=== PATIENT | male | born 1945 | race Caucasian/White ===

== ENCOUNTER 2017-01-02 21:29 | Outpatient (CLI) | payer MEDICARE | END 2017-01-02 21:30 | disposition critical access hospital (66) | LOC: EMS 21:29 | PROVIDERS: ATTEND Surgery | DX: M54.5 Low back pain (principal); Z91.81 History of falling | CPT/HCPCS: A0425; A0427 ==

== ENCOUNTER 2017-01-02 21:50 | Emergency (ER) | payer MEDICARE ==
[2017-01-02] MEDS ORDERED: SODIUM CHLORIDE 0.9% 500 ML IV ONE (22:46)
[2017-01-02] MEDS ORDERED: MORPHINE 10 MG/ML VIAL IVP STA (22:51)
--- NOTE | 2017-01-02 22:51 | ED Physician Documentation ---
PD HPI BACK PAIN - Stated complaint Stated Complaint: LW BACK PN - Chief complaint Chief Complaint: Neuro - History obtained from History obtained from: Patient - History of Present Illness Timing - onset: How many days ago (6-7 days ago after a fall, with worsening of chronic low back pain. Still with some worse pain, but improved from the time of the fall. Has general weakness and confusion starting today.) Timing - details: Abrupt onset (has had chronic back pain but acute worsening 6 days ago when fell backward, lost balance.), Still present (has had continued higher degree of back pain all week. Has had onset of confusion and agitation the past day. Has not missed any meds. Only new med was Prednisone the past 5 days.) Location: Lower Quality: Pain Associated symptoms: Unable to urinate (smaller dribbling at times.), Other (he has been confused and anxious the past 1-2 days.). No: Fever, Weakness, Numbness Worsened by: Movement Contributing factors: Trauma (fell backward, lost balance 6 days ago). No: Anticoagulated Recently seen: Emergency Dept (in [place], 6 days ago for low back pain and Rx with Prednisone that he has been on since Tuesday.) Review of Systems Constitutional: denies: Fever Nose: denies: Rhinorrhea / runny nose, Congestion Throat: denies: Sore throat Respiratory: denies: Cough GI: denies: Abdominal Pain, Nausea, Vomiting, Diarrhea, Bloody / black stool : reports: Frequency, Hesitancy. denies: Dysuria Skin: denies: Rash, Lesions Musculoskeletal: reports: Back pain, Other (he has fallen a couple more times in the past few days, with just slumping to ground, not hard landings, per patient.) Neurologic: reports: Generalized weakness, Confused. denies: Focal weakness, Numbness, Headache, Head injury (he does not think he hit his head with falls.) Psychiatric: denies: Depressed Endocrine: denies: Weight loss Immunocompromised: denies: Immunocompromised PD PAST MEDICAL HISTORY - Past Medical History Cardiovascular: Hypertension, High cholesterol, Coronary artery disease Neuro: None GI: GERD : Benign prostate hypertrophy Musculoskeletal: Gout, Chronic back pain - Past Surgical History Past Surgical History: Yes Ortho: Knee replacement, Spine surgery Cardiovascular: Angioplasty - Present Medications Home Medications: Ambulatory Orders Medication Instructions Recorded Confirmed Allopurinol 300 mg PO DAILY 11/23/13 01/02/17 Aspirin [Aspir 81] 81 mg PO DAILY 11/23/13 01/02/17 Diclofenac Potassium 75 mg PO BID 11/23/13 01/02/17 Doxycycline Hyclate 100 mg PO DAILY 11/23/13 01/02/17 Fluoxetine HCl 60 mg PO DAILY 11/23/13 01/02/17 Furosemide [Lasix] 20 mg PO DAILY 11/23/13 01/02/17 Lisinopril 2.5 mg PO DAILY 11/23/13 01/02/17 Loratadine [Claritin] 10 mg PO DAILY 11/23/13 01/02/17 Metoprolol Tartrate 12.5 mg PO BID 11/23/13 01/02/17 Morphine ER 30 mg PO Q8H 01/13/16 01/02/17 Atorvastatin Calcium [Lipitor] 80 mg PO DAILY 01/02/17 01/02/17 Docusate Sodium [Dss] 250 mg PO DAILY 01/02/17 01/02/17 Nitroglycerin [Nitrostat] 0.4 mg PO PRN PRN MDD 3 01/02/17 01/02/17 Polyethylene Glycol 3350 [Miralax] 17 g PO DAILY 01/02/17 01/02/17 oxyCODONE [Roxicodone] 5 mg PO Q6HR 01/02/17 01/02/17 - Allergies Allergies/Adverse Reactions: Allergies Allergy/AdvReac Type Severity Reaction Status Date / Time No Known Drug Allergies Allergy Verified 01/02/17 22:03 - Living Situation Living Situation: reports: With spouse/s.o. Living Arrangement: reports: At home - Social History Does the pt smoke?: No Smoking Status: Former smoker Does the pt drink ETOH?: Yes Does the pt have substance abuse?: No - Family History Family history: reports: Non contributory - POLST Patient has POLST: No PD ED PE NORMAL - Vitals Vital signs reviewed: Yes - General General: Alert and oriented X 3 (he is oriented but is somewhat anxious and confused, with disjointed or nonsensical answers at times. Does not seem to have any hallucinations. ), No acute distress, Well developed/nourished - HEENT HEENT: Atraumatic, PERRL, EOMI (no nystagmus), Ears normal, Pharynx benign. No : Moist mucous membranes - Neck Neck: Supple, no meningeal sign, No bony TTP, No adenopathy - Cardiac Cardiac: RRR, No murmur - Respiratory Respiratory: Clear bilaterally - Abdomen Abdomen: Soft, Non tender - Male Male : Deferred - Rectal Rectal: Deferred - Back Back: No CVA TTP, Other (upper lumbar area tender to percussion. No rash nor sores. ) - Derm Derm: Normal color, Warm and dry - Extremities Extremities: No tenderness to palpate, Normal ROM s pain, No edema - Neuro Neuro: No motor deficit, No sensory deficit, Normal speech, Other (2+ DTRs at knees. There is normal sensation in perineal and scrotal area. ) - Psych Psych: No: Normal affect (anxious, somewhat confused. Not shaking. ) Results - Vitals Vitals: Vital Signs - 24 hr 01/02/17 01/02/17 01/03/17 22:04 22:17 01:03 Temperature 98.4 C H Heart Rate 78 75 80 Respiratory 19 17 Rate Blood Pressure 136/100 H 152/80 H O2 Saturation 95 94 01/03/17 01/03/17 03:21 05:52 Temperature 36.8 C Heart Rate 83 87 Respiratory 18 20 Rate Blood Pressure 173/91 H 155/90 H O2 Saturation 95 96 Oxygen O2 Source Room air - Labs Labs: Laboratory Tests 01/02/17 01/02/17 01/02/17 23:00 23:00 23:00 WBC 14.5 H RBC 4.35 L Hgb 13.4 L Hct 39.7 L MCV 91.2 MCH 30.9 MCHC 33.8 RDW 14.5 Plt Count 293 MPV 8.4 Neut # 11.6 H Lymph # 1.6 Harding # 1.2 H Eos # 0.0 Baso # 0.1 Absolute Nucleated RBC 0.00 Nucleated RBCs 0.0 Sodium 137 Potassium 3.6 Chloride 100 L Carbon Dioxide 27 Anion Gap 10.0 BUN 28 H Creatinine 0.8 Estimated GFR (MDRD) 96 Glucose 128 H Lactic Acid 1.1 Calcium 8.8 Magnesium 1.8 Total Bilirubin 1.4 H AST 43 H ALT 62 H Alkaline Phosphatase 106 Troponin I Total Protein 6.4 L Albumin 3.5 Globulin 2.9 Albumin/Globulin Ratio 1.2 Lipase 11 L Urine Color Urine Clarity Urine pH Ur Specific Arthur Urine Protein Urine Glucose (UA) Urine Ketones Urine Occult Blood Urine Nitrite Urine Bilirubin Urine Urobilinogen Ur Leukocyte Esterase Ur Microscopic Review Urine Culture Comments 01/02/17 01/03/17 23:00 02:00 WBC RBC Hgb Hct MCV MCH MCHC RDW Plt Count MPV Neut # Lymph # Harding # Eos # Baso # Absolute Nucleated RBC Nucleated RBCs Sodium Potassium Chloride Carbon Dioxide Anion Gap BUN Creatinine Estimated GFR (MDRD) Glucose Lactic Acid Calcium Magnesium Total Bilirubin AST ALT Alkaline Phosphatase Troponin I 0.04 Total Protein Albumin Globulin Albumin/Globulin Ratio Lipase Urine Color DARK YELLOW Urine Clarity CLEAR Urine pH 6.0 Ur Specific Arthur 1.020 Urine Protein NEGATIVE Urine Glucose (UA) NEGATIVE Urine Ketones NEGATIVE Urine Occult Blood NEGATIVE Urine Nitrite NEGATIVE Urine Bilirubin NEGATIVE Urine Urobilinogen 0.2 (NORMAL) Ur Leukocyte Esterase NEGATIVE Ur Microscopic Review NOT INDICATED Urine Culture Comments NOT INDICATED - Rads (name of study) head CT Radiology: Prelim report reviewed (no acute findings) chest xray Radiology: Prelim report reviewed, EMP read contemporaneously (no infiltrates nor acute process) abd/pelvic CT Radiology: Prelim report reviewed (L1 transverse fracture, 2 column, unstable fracture, with hematoma surrounding. No intraabdominal process. ) PD MEDICAL DECISION MAKING - ED course Complexity details: considered differential (Back pain since fall, had plain xrays in Urgent Care or ER 6 days ago. Rx with steroids. His agitation/ confusion could be steroid psychosis. Checked for signs of CHI, infection, metabolic, other medications. He has been taking meds regularly so would not seem withdrawal. ), d/w patient, d/w family (), d/w integration consultant ([place] transfer controller and then Neurosurgery at [facility].) Departure - Departure Disposition: Transfer Acute Care Hosp Clinical Impression: Acute confusion, Steroid-induced psychosis Fracture of lumbar spine Qualifiers: Encounter type: initial encounter Lumbar vertebra fracture level: L1 Fracture type: closed Fracture morphology: other fracture Qualified Code(s): S32.018A - Other fracture of first lumbar vertebra, initial encounter for closed fracture Accidental fall Qualifiers: Encounter type: initial encounter Qualified Code(s): W19.XXXA - Unspecified fall, initial encounter Condition: Stable Record reviewed to determine appropriate education?: Yes
[2017-01-02] MEDS ORDERED: MORPHINE 10 MG/ML VIAL ONE (22:59)
[2017-01-02 23:14] LABS: BASOPHILS # (AUTO) 0.1 10^3/uL (0.0-0.1); BASOPHILS % (AUTO) 0.5 %; HCT - HEMATOCRIT 39.7 % (42.0-52.0); HGB - HEMOGLOBIN 13.4 g/dL (14.0-18.0); LYMPHOCYTES # (AUTO) 1.6 10^3/uL (1.5-3.5); LYMPHOCYTES % (AUTO) 10.9 %; MEAN CORPUSCULAR HEMOGLOBIN 30.9 pg (27.0-31.0); MEAN CORPUSCULAR HGB CONC 33.8 g/dL (32.0-36.0); MEAN CORPUSCULAR VOLUME 91.2 fL (80.0-94.0); MEAN PLATELET VOLUME 8.4 fL (7.4-11.4); MONOCYTES # (AUTO) 1.2 10^3/uL (0.0-1.0); MONOCYTES % (AUTO) 8.1 %; NEUTROPHILS # (AUTO) 11.6 10^3/uL (1.5-6.6); NEUTROPHILS % (AUTO) 80.5 %; RED BLOOD COUNT 4.35 10^6/uL (4.70-6.10); RED CELL DISTRIBUTION WIDTH 14.5 % (12.0-15.0); UNCORRECTED WHITE BLOOD COUNT 14.5 x10^3/uL; WHITE BLOOD COUNT 14.5 x10^3/uL (4.8-10.8)
--- NOTE | 2017-01-02 23:35 | XRAY Preliminary Report ---
Exam: XR Chest 1 View IMPRESSION: Hypoventilatory single view chest without definite acute process. [facility] SITE ID: [id number]
--- NOTE | 2017-01-02 23:38 | XRAY Report ---
EXAM: CHEST RADIOGRAPHY EXAM DATE: 01/02/2017 11:15 PM. CLINICAL HISTORY: Cough, weakness. COMPARISON: 11/23/2013. TECHNIQUE: 1 view. FINDINGS: Lungs/Pleura: Low volumes. No focal opacities evident with exception of minimal left lung base scarri ng or atelectasis. No gross pneumothorax or large effusion. Mediastinum: Grossly unremarkable given rotation and hypoventilation. Other: Old right clavicle fracture and rib fractures. IMPRESSION: Hypoventilatory single view chest without definite acute process. [facility] Referring Provider Line: [phone] SITE ID: [id number]
[2017-01-03 00:09] LABS: ALBUMIN/GLOBULIN RATIO 1.2 (1.0-2.2); BILIRUBIN,TOTAL 1.4 mg/dL (0.2-1.0); CALCIUM 8.8 mg/dL (8.5-10.3); CREATININE 0.8 mg/dL (0.6-1.2); MAGNESIUM 1.8 mg/dL (1.7-2.8); POTASSIUM 3.6 mmol/L (3.5-5.0); TOTAL PROTEIN 6.4 g/dL (6.7-8.2)
[2017-01-03] MEDS ORDERED: IOPAMIDOL-300 100 ML VIAL ONE (00:26)
--- NOTE | 2017-01-03 00:31 | CT Preliminary Report ---
Exam: CT Head W/O IMPRESSION: Normal head CT. [facility] SITE ID: [id number]
--- NOTE | 2017-01-03 00:51 | CT Report ---
EXAM: CT HEAD EXAM DATE: 01/03/2017 12:00 AM. CLINICAL HISTORY: Confusion and weakness. COMPARISON: 01/14/2016 and 01/13/2016. TECHNIQUE: Multiaxial CT images were obtained from the foramen magnum to the vertex. IV contrast: Non e. Reformats: Coronal. In accordance with CT protocol optimization, one or more of the following dose reduction techniques w ere utilized for this exam: automated exposure control, adjustment of mA and/or KV based on patient s ize, or use of iterative reconstructive technique. FINDINGS: Parenchyma: No intraparenchymal hemorrhage. No evidence of mass, midline shift, or CT findings of inf arction. Martinez-white differentiation is distinct. Extraaxial Spaces: Normal for age. No subdural or epidural collections identified. Ventricles: Normal in size and position. Sinuses: Imaged paranasal sinuses, orbits, and mastoids show no significant abnormality. Bones: No evidence of fracture or calvarial defect. Other: None. IMPRESSION: Normal head CT. [facility] Referring Provider Line: [phone] SITE ID: [id number]
[2017-01-03] MEDS ORDERED: MORPHINE 10 MG/ML VIAL IVP STA ×2 (01:07→03:37)
[2017-01-03] MEDS ORDERED: MORPHINE 10 MG/ML VIAL ONE ×2 (01:17→05:54)
[2017-01-03] MEDS ORDERED: IOPAMIDOL-300 100 ML VIAL IVP ONE (01:43)
--- NOTE | 2017-01-03 02:12 | CT Preliminary Report ---
Exam: CT Abdomen/Pelvis W/ IMPRESSION: 1. Ankylosing spondylitis with bamboo spine. Transverse fracture through the L1 vertebral body extend s through the posterior elements and likely through the posterior longitudinal ligament at the T12 le chelle. This should be considered unstable spine (AO SPINE B3). Neurosurgical consultation suggested. 2. Mild surrounding perivertebral hematoma. 3. Congenitally narrow central canal. Previous L4-L5 surgery. 4. Patulous urinary bladder, likely neurogenic. 5. Colonic diverticulosis. 6. Moderate atherosclerotic disease of the aorta and branches, including coronary calcifications. [facility] The above critical findings were discussed with [place] by Dr. Peter Rosales at 02:09 hrs on 12/11 08/25. SITE ID: [id number]
[2017-01-03] MEDS ORDERED: cefTRIAXone 1 GM in SODIUM CHLORIDE 0.9% MINIBAG 100 ML IV STA (02:13)
--- NOTE | 2017-01-03 02:23 | CT Report ---
EXAM: CT ABDOMEN AND PELVIS EXAM DATE: 01/03/2017 01:42 AM. CLINICAL HISTORY: Back pain, abdominal pain, weakness. COMPARISONS: None. TECHNIQUE: Routine helical CT imaging was performed through the abdomen and pelvis. IV contrast: Yes. Enteric contrast: No . Reconstructions: Coronal and sagittal. In accordance with CT protocol optimization, one or more of the following dose reduction techniques w ere utilized for this exam: automated exposure control, adjustment of mA and/or KV based on patient s ize, or use of iterative reconstructive technique. FINDINGS: Lung Bases: Borderline cardiomegaly. Severe coronary calcifications. Mild basilar atelectasis or scar ring. Liver: Unremarkable. No suspicious masses. Gallbladder/Bile Ducts: Unremarkable. Spleen: Unremarkable. Pancreas: Unremarkable. Adrenal Glands: Unremarkable. Kidneys: Small cysts bilaterally.. No suspicious masses or hydronephrosis. Peritoneal Cavity/Bowel: Colonic diverticulosis. No bowel obstruction or inflammatory process seen. N o free air or significant free fluid. No masses or adenopathy. The appendix is normal. No excessive s tool burden. Pelvic Organs: Patulous urinary bladder without gross wall thickening or stones seen. Prostate within normal limits for age. Vasculature: Moderate atherosclerotic disease of the aorta and branches. No aneurysm seen. Bones: Bamboo type spine, consistent with ankylosing spondylitis. There is a transverse fracture thro ugh the superior and central aspect of the L1 vertebral body, extending into the posterior elements. It may extend through the posterior longitudinal ligament at the T12 level. Mild surrounding paravert ebral hematoma. No definite epidural hematoma, but the patient has a congenitally narrow central demetria l. Previous surgery at the L4-L5 level. There are L4 pars defects and grade 1 anterolisthesis of L4 on L 5. Other: None. IMPRESSION: 1. Ankylosing spondylitis with a bamboo spine. Transverse fracture through the L1 vertebral body exte nding through the posterior elements and likely through the posterior longitudinal ligament at the T1 2 level. This should be considered unstable spine (AO SPINE B3). Neurosurgical consultation suggested . 2. Mild surrounding perivertebral hematoma. 3. Congenitally narrow central canal. Previous L4-L5 surgery. 4. Patulous urinary bladder, likely neurogenic. 5. Colonic diverticulosis. 6. Moderate atherosclerotic disease of the aorta and branches, including coronary calcifications. [facility] The above critical findings were discussed with Dr. Alberts by Dr. Peter Rosales at 02:09 hrs on 01/03/17. Referring Provider Line: [phone] SITE ID: [id number]
[2017-01-03] MEDS ORDERED: cefTRIAXone 2 GM VIAL ONE (02:24)
[2017-01-03] MEDS ORDERED: cefTRIAXone 1 GM VIAL ONE (02:40)
[2017-01-03 02:46] LABS: BILIRUBIN,URINE NEGATIVE (NEGATIVE)
[2017-01-03 02:52] LABS: UA CHARGE (STRIP ONLY) YES; UR CULTURE IF IND NOT INDICATED
[2017-01-03] MEDS ORDERED: MORPHINE PO STA (03:37)
[2017-01-03 05:52] VITALS: BP 155/90
== END 2017-01-03 06:51 | disposition short-term general hospital (02) ==
LOC: EDUNIT# → ED 21:50
DX: S32.018A Other fracture of first lumbar vertebra, initial encounter for closed fracture (principal); W01.0XXA Fall on same level from slipping, tripping and stumbling without subsequent striking against object, initial encounter; R41.0 Disorientation, unspecified; F15.959 Other stimulant use, unspecified with stimulant-induced psychotic disorder, unspecified; I10 Essential (primary) hypertension; I44.7 Left bundle-branch block, unspecified; R94.31 Abnormal electrocardiogram [ECG] [EKG]; E78.00 Pure hypercholesterolemia, unspecified; I25.10 Atherosclerotic heart disease of native coronary artery without angina pectoris; K21.9 Gastro-esophageal reflux disease without esophagitis; N40.0 Benign prostatic hyperplasia without lower urinary tract symptoms; M10.9 Gout, unspecified; Z79.82 Long term (current) use of aspirin; Z87.891 Personal history of nicotine dependence
CPT/HCPCS: 36415; 51701; 70450; 71010; 74177; 80053; 81003; 83605; 83690; 83735; 84484; 85025; 93005; 96374; 96375; 96376; 99285; Q9967; 81001; 87086

== ENCOUNTER 2017-02-07 10:47 | Outpatient (CLI) | payer MEDICARE ==
--- NOTE | 2017-02-07 12:53 | XRAY Report ---
THREE VIEW LUMBAR SPINE: 02/07/2017 CLINICAL INDICATION: Fracture followup. COMPARISON: CT of 01/03/2017. FINDINGS: AP, lateral, and coned down views of the lumbar spine demonstrate posterior laurent and pedicl e screw fusion from T12 to L2, spanning the L1 fracture. Cement has been injected into the T12 verteb ral body. Osseous fusion of L3 to L4 is stable. No new fracture is appreciated. IMPRESSION: POSTERIOR LAURENT AND PEDICLE SCREW FUSION OF T12 TO L2, SPANNING THE L1 FRACTURE PREVIOUSLY IDENTIFIED. STABLE OSSEOUS FUSION OF L3 TO L4 AND DEGENERATIVE CHANGES. JOB #: [id number] EXT JOB #:[id number]
== END 2017-02-07 10:48 | disposition home or self-care (01) ==
LOC: DI 10:47
PROVIDERS: ATTEND Physician Assistant
DX: M45.9 Ankylosing spondylitis of unspecified sites in spine (principal)
CPT/HCPCS: 72100

== ENCOUNTER 2017-03-07 17:20 | Outpatient (CLI) | payer MEDICARE ==
[2017-03-07 18:42] LABS: BASOPHILS # (AUTO) 0.1 10^3/uL (0.0-0.1); BASOPHILS % (AUTO) 0.8 %; EOSINOPHILS # (AUTO) 0.3 10^3/uL (0.0-0.7); EOSINOPHILS % (AUTO) 3.7 %; HCT - HEMATOCRIT 35.3 % (42.0-52.0); HGB - HEMOGLOBIN 11.4 g/dL (14.0-18.0); LYMPHOCYTES # (AUTO) 2.3 10^3/uL (1.5-3.5); LYMPHOCYTES % (AUTO) 28.4 %; MEAN CORPUSCULAR HEMOGLOBIN 27.7 pg (27.0-31.0); MEAN CORPUSCULAR HGB CONC 32.2 g/dL (32.0-36.0); MEAN CORPUSCULAR VOLUME 85.9 fL (80.0-94.0); MEAN PLATELET VOLUME 7.9 fL (7.4-11.4); MONOCYTES # (AUTO) 0.8 10^3/uL (0.0-1.0); MONOCYTES % (AUTO) 9.4 %; NEUTROPHILS # (AUTO) 4.7 10^3/uL (1.5-6.6); NEUTROPHILS % (AUTO) 57.7 %; NUCLEATED RED BLOOD CELLS AUTO 0.1 /100WBC; RED CELL DISTRIBUTION WIDTH 17.3 % (12.0-15.0); UNCORRECTED WHITE BLOOD COUNT 8.2 x10^3/uL; WHITE BLOOD COUNT 8.2 x10^3/uL (4.8-10.8)
[2017-03-07 19:00] LABS: ALBUMIN/GLOBULIN RATIO 0.7 (1.0-2.2); BILIRUBIN,TOTAL 0.5 mg/dL (0.2-1.0); CALCIUM 8.4 mg/dL (8.5-10.3); CREATININE 0.7 mg/dL (0.6-1.2); POTASSIUM 3.7 mmol/L (3.5-5.0)
== END 2017-03-07 17:21 | disposition home or self-care (01) ==
LOC: LAB.R 17:20
DX: D64.9 Anemia, unspecified (principal); I10 Essential (primary) hypertension; E46 Unspecified protein-calorie malnutrition
CPT/HCPCS: 80053; 84134; 85025